=== PATIENT | female | born 1975 | race African-American/Black ===

== ENCOUNTER 2025-01-05 16:43 | Emergency (ER) | payer BC ==
[~2025-01-05] VITALS: Ht 167.6 cm; Wt 86.0 kg
[2025-01-05 16:49] VITALS: O2SAT 98
[2025-01-05] MEDS: MORPHINE SULFATE 4 MG/ML INJ (FOR IV/IM USE) IV STA (17:40)
[2025-01-05] MEDS: ONDANSETRON HCL 4MG/2ML INJ IV STA (17:40)
[2025-01-05 17:42] VITALS: TEMP 37.1
[2025-01-05 17:48] LABS: BASOPHILS % 1.2 % (0.0-2.0); EOSINOPHILS % 2.8 % (0.0-5.0); HEMATOCRIT. 42.9 % (42.0-52.0); HEMOGLOBIN. 14.2 g/dL (14.0-18.0); LYMPHOCYTES % 25.4 % (20.0-50.0); MEAN CORPUSCULAR HEMOGLOBIN 31.7 pg (28.0-32.0); MEAN CORPUSCULAR HGB CONC 33.2 g/dL (31.0-37.0); MEAN CORPUSCULAR VOLUME 95.5 fL (80.0-94.0); MEAN PLATELET VOLUME 10.4 fl (7.4-10.4); MONOCYTES % 8.2 % (2.0-8.0); NEUTROPHILS % 62.4 % (40.0-76.0); PLATELET 274 x1000/uL (130-400); RED BLOOD CELL COUNT 4.49 mill/uL (4.7-6.1); RED CELL DISTRIBUTION WIDTH 13.5 % (11.6-14.6); WHITE BLOOD COUNT 12.4 x1000/uL (4.5-11.0)
[2025-01-05 17:57] LABS: CHLORIDE 105 mEq/L (98-107); HCG SCREEN NEGATIVE; POTASSIUM 3.4 mEq/L (3.5-5.1); SODIUM 140 mEq/L (136-145)
[2025-01-05 17:58] LABS: CALCIUM 9.8 mg/dL (8.7-10.4); CARBON DIOXIDE 27 mEq/L (21-32)
[2025-01-05 17:59] LABS: CLARITY URINE CLEAR (CLEAR); COLOR URINE YELLOW (YELLOW); GLUCOSE URINE NEGATIVE (NEGATIVE); KETONES URINE NEGATIVE (NEGATIVE); LEUKOCYTE ESTERASE URINE NEGATIVE (NEGATIVE); NITRITE URINE NEGATIVE (NEGATIVE); OCCULT BLOOD URINE NEGATIVE (NEGATIVE); PROTEIN URINE TRACE (NEGATIVE); UROBILINOGEN URINE 0.2 E.U./dL (0.2-1.0)
[2025-01-05 18:01] LABS: INR 0.9; PROTHROMBIN TIME 10.5 sec (9.6-11.0)
[2025-01-05 18:03] LABS: GLUCOSE 98 mg/dL (70-105); UREA NITROGEN BLOOD 12 mg/dL (9-23)
[2025-01-05 18:05] LABS: ALANINE AMINOTRANSFERASE 48 IU/L (10-49); ALBUMIN 4.7 g/dL (3.2-4.8); ASPARTATE AMINOTRANSFERASE 32 IU/L (<34); BILIRUBIN DIRECT 0.2 mg/dL (<=3.0); BILIRUBIN TOTAL 0.7 mg/dL (0.1-1.0); PROTEIN TOTAL 8.1 g/dL (6.0-8.3); TROPONIN I HIGH SENSITIVITY 10 ng/L (3.0-53)
[2025-01-05 18:11] LABS: *AMPHETAMINES SCREEN URINE NEGATIVE (NEGATIVE); *BARBITURATES SCREEN URINE NEGATIVE (NEGATIVE); *BENZODIAZEPINES SCREEN URINE NEGATIVE (NEGATIVE); *COCAINE SCREEN URINE NEGATIVE (NEGATIVE); CANNABINOID URINE SCREEN NEGATIVE (NEGATIVE); ECSTASY MDMA SCREEN URINE NEGATIVE (NEGATIVE); METHADONE URINE SCREEN NEGATIVE (NEGATIVE); OPIATES URINE SCREEN NEGATIVE (NEGATIVE); PHENCYCLIDINE URINE SCREEN NEGATIVE (NEGATIVE)
[2025-01-05 18:30] LABS: BACTERIA URINE NONE SEEN; RBC URINE NONE SEEN /hpf (0-2); SQUAMOUS EPITHELIAL CELL URINE RARE /lpf (RARE/1+); WBC URINE NONE SEEN /hpf (0-2)
[2025-01-05] MEDS: MAGNESIUM OXIDE 400MG TABLET PO SCH (20:26)
[2025-01-05] MEDS: POTASSIUM CHLORIDE 10MEQ TABLET SR PO ONE (20:26)
[2025-01-05] MEDS ORDERED: METHOCARBAMOL 750MG TABLET PO SCH (21:00)
[2025-01-05] MEDS ORDERED: IBUP-2028 MT (21:03)
[2025-01-05] MEDS ORDERED: METH-653 MT (21:16)
[2025-01-05] MEDS ORDERED: LIDO700A15 TP (21:16)
[2025-01-05] MEDS: METHOCARBAMOL 500MG TABLET PO SCH (21:18)
[2025-01-05] MEDS: KETOROLAC 30MG/ML VIAL IV ONE (21:19)
[2025-01-05 21:20] VITALS: BP 127/89; PULSE 85; RESP 21; O2SAT 95
[2025-01-06] MEDS ORDERED: IOHEXOL-350 100 ML BOTTLE ONE (00:25)
== END 2025-01-05 22:18 | disposition home or self-care (01) ==
LOC: ER 16:43 → EDSEX 16:43 → ER 22:18
DX: R00.2 Palpitations (principal); R51.9 Headache, unspecified; M54.2 Cervicalgia; E78.00 Pure hypercholesterolemia, unspecified; I10 Essential (primary) hypertension; Z88.1 Allergy status to other antibiotic agents
CPT/HCPCS: 80076; 80305; 80048; 81003; 84703; 83880; 83690; 83735; 84100; 85025; 85610; 84484; 36415; 71045; 71275; 70496; 70498; 70450; 93005; 96374; 99285; Q9967; J1885; J2405; J2270; Z7610